=== PATIENT | female | born 1940 | race Caucasian/White ===

== ENCOUNTER 2020-06-28 10:44 | Emergency (ER) | payer MEDICARE, OTHER, SELFPAY ==
[2020-06-28 10:46] VITALS: BP 245/88; PULSE 83; RESP 18; TEMP 36.8; O2SAT 98; BMI 28.7
--- NOTE | 2020-06-28 11:03 | ED.VIS.GEN ---
History of Present Illness Chief Complaint: Hypertension Informant: Patient Narrative: 79-year-old female is brought to the emergency room for hypertension. 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 She was hospitalized 3 weeks ago at [facility] for hypertension. She was recently hospitalized at [place] for hypertension. She has a couple of medication list with her but she does not know which ones she is currently taking. Reportedly she has new hypertensive medications that her daughter picked up for her that she has not yet started taking. She states she took what she had. She states that she notes her blood pressure spikes with her anxiety and with her pain. Tells me that her blood pressure at home after discharge yesterday was around 150/80. Blood pressure readings at preoperative testing was around 250/90. She denies any symptoms related to her hypertension. 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 Past Medical History - Allergies and Home Meds Allergies/Adverse Reactions: Allergies lisinopril Allergy (Verified 06/28/20 10:49) Shortness of breath Primary Care Physician: ISAI GAMBLE [Other] - As soon as possible Past Medical History: - - Hypertension hypercholesterolemia Surgical History: noncontributory Lives: - - Lives in [place] Smoking Status: Never smoker Drugs: None Review of Systems General: Denies: Chills, Fever, Sweats Eyes: Denies: Visual changes - bilaterally, Diplopia ENT: Reports: - - Chronic facial pain. Denies: Rhinorrhea, Sore throat Cardiovascular: Denies: Chest pain, Palpitations Respiratory: Denies: Dyspnea, Cough, Dyspnea on exertion Gastrointestinal: Denies: Abdominal pain, Nausea, Vomiting, Diarrhea, Melena, Hematochezia Genitourinary: Denies: Dysuria, Hematuria, Frequency Musculoskeletal: Denies: Back pain, Extremity Pain Skin: Denies: Rash, Wounds Neurological: Denies: Headache, Weakness, Numbness Physical Exam Vital Signs/Narrative: Vital Signs Temp Pulse Resp BP Pulse Ox 06/28/20 10:46 98.2 F 83 18 245/88 H 98 Inital Vital Signs reviewed: Yes General: Well nourished, Well developed, No Acute Distress Head: Normocephalic, Atraumatic Eyes: Perrl, EOMI ENT: Moist mucous membranes, No rhinorrhea Neck: Supple, Nontender Cardiovascular: Regular rate, Regular rhythm, No murmurs Respiratory: No distress, CTA bilaterally, Chest nontender Abdomen: Soft, Nontender, Nondistended, Normal bowel sounds Back: Nontender, Normal Inspection Extremities: Nontender, No edema Skin: Normal color, No rash Neurological: Alert, Oriented x3, Cranial nerves II-XII grossly intact, Normal Strength, Normal Sensation Psychological: Normal affect, Normal Mood Diagnostic/Tx/Re-eval Clinical Impression(s) from Imaging Studies Chest X-Ray 06/28/20 11:35 IMPRESSION: Hyperinflation. No acute abnormality is seen. Electronically Signed: Ventura Tika, at 12:14 EST , Service support , Laboratory Last Values WBC 8.2 K/mm3 (4.4-11.0) 06/28/20 10:28 RBC 3.49 M/mm3 (4.2-5.4) L 06/28/20 10:28 Hgb 10.8 g/dL (12.0-15.0) L 06/28/20 10:28 Hct 30.2 % (37-47) L 06/28/20 10:28 MCV 86.5 fL (81-99) 06/28/20 10:28 MCH 30.9 pg (27.0-32.0) 06/28/20 10:28 MCHC 35.8 g/dL (32-36) 06/28/20 10:28 RDW Std Deviation 39.4 fl (35.1-43.9) 06/28/20 10:28 RDW Coeff of Dwight 12.5 % (11.6-14.6) 06/28/20 10:28 Plt Count 222 K/mm3 (150-450) 06/28/20 10:28 MPV 9.0 fl (6.2-12.0) 06/28/20 10:28 Immature Gran % (Auto) 0.400 % (0.0-0.9) 06/28/20 10:28 Neut % (Auto) 83.3 % (47-70) H 06/28/20 10:28 Lymph % (Auto) 8.3 % (19-41) L 06/28/20 10:28 Walker % (Auto) 6.3 % (0-10) 06/28/20 10:28 Eos % (Auto) 1.5 % (0-5) 06/28/20 10:28 Baso % (Auto) 0.2 % (0-1) 06/28/20 10:28 Absolute Neuts (auto) 6.8 X10^3/uL (2.0-7.7) 06/28/20 10:28 Absolute Lymphs (auto) 0.68 X10^3/uL (0.83-4.51) L 06/28/20 10:28 Nucleated RBC % 0 % (0-5) 06/28/20 10:28 Sodium 130 mmol/L (136-145) L 06/28/20 10:28 Potassium 3.4 mmol/L (3.5-5.1) L 06/28/20 10:28 Chloride 95 mmol/L (98-107) L 06/28/20 10:28 Carbon Dioxide 28.0 mmol/L (21.0-32.0) 06/28/20 10:28 Anion Gap 7 (5-15) 06/28/20 10:28 BUN 14 mg/dL (7-18) 06/28/20 10:28 Creatinine 0.76 mg/dL (0.55-1.02) 06/28/20 10:28 Estim Creat Clear Calc 39.70 ml/min 06/28/20 10:28 Est GFR (MDRD) Af Amer 94 mL/min (>60) 06/28/20 10:28 Est GFR (MDRD) Non-Af 78 mL/min (>60) 06/28/20 10:28 BUN/Creatinine Ratio 18.5 RATIO (10-20) 06/28/20 10:28 Glucose 110 mg/dL (74-106) H 06/28/20 10:28 Calcium 9.1 mg/dL (8.5-10.1) 06/28/20 10:28 Troponin I 0.015 ng/mL (<0.045) 06/28/20 10:28 Clinical Impression(s) from Imaging Studies Chest X-Ray 06/28/20 11:35 IMPRESSION: Hyperinflation. No acute abnormality is seen. Electronically Signed: Ventura Villela, at 12:14 EST , Service support , - EKG Initial EKG Interpretation: Sinus Rhythm - EKG demonstrates a sinus rhythm with a first-degree AV block. No concerning features of ACS. - Medical Decision Making Chest x-ray shows a normal mediastinal silhouette. EKG appears without any ST depression or elevation. Basic blood work was negative. I spoke with the patient after she received 2 doses of hydralazine her blood pressure is now 199/86. We talked about whether or not she would want to be hospitalized here versus going back home taking the regimen that she was prescribed after hospital discharge yesterday and seeing how her blood pressure does in 24 hours and that if it continues to be significantly elevated she would go to her local hospital for admission. She states she would feel comfortable more comfortable if her blood pressure was lower but that ideally she would prefer to be back in [place]. I gave her oral clonidine. At 1338 hrs. the patient's blood pressure is 181/52. I informed the patient I cannot predict the future. I do not know if her blood pressure will rise again. Do not know if she goes home and she takes her medications if her blood pressure will go back down to where it was when she left the hospital yesterday. Patient understands this. She is comfortable going home taking her blood pressure regimen following up with her doctor if it stabilizes but also going back to [facility] if she enters into hypertensive urgency range. ED Disposition - Plan for ED Patient: Disposition: Home or Assisted Living Diagnosis: Hypertensive urgency Instructions: ED High Blood Pressure Established Out of Control Referrals: ISAI GAMBLE [Other] - As soon as possible Additional Instructions: You return home take the blood pressure medications that you were prescribed. Make sure that your medications are clearly outlined as to what you should take. If in 24 hours with that regimen you are still significantly hypertensive I recommend you talking either to your doctor or go back to [facility].
--- NOTE | 2020-06-28 11:07 | EKG12_ITS ---
Test Reason : Blood Pressure : / mmHG Vent. Rate : 074 BPM Atrial Rate : 074 BPM P-R Int : 224 ms QRS Dur : 088 ms QT Int : 384 ms P-R-T Axes : 070 -19 031 degrees QTc Int : 426 ms Sinus rhythm with marked sinus arrhythmia with 1st degree A-V block Minimal voltage criteria for LVH, may be normal variant Borderline ECG Confirmed by ELA GUILLERMO, SHERIE ([id number]), marketing editor JESSICA DUMAS ([id number]) on 07/02/2020 8:36:39 AM Referred By: Confirmed By:SHERIE MAHMOOD MD
[2020-06-28 11:16] LABS: Absolute Lymphocyte Count 0.68 X10^3/uL (0.83-4.51); Absolute Neutrophil Count 6.8 X10^3/uL (2.0-7.7); Basophil# 0.02 X10^3/uL; Basophil% 0.2 % (0-1); Eosinophil# 0.12 X10^3/uL; Eosinophils% 1.5 % (0-5); Hematocrit 30.2 % (37-47); Hemoglobin 10.8 g/dL (12.0-15.0); Lymphocyte # 0.68 X10^3/ul (4.0); Lymphocyte % 8.3 % (19-41); Mean Corp Hgb Conc 35.8 g/dL (32-36); Mean Corpuscular Hgb 30.9 pg (27.0-32.0); Mean Corpuscular Volume 86.5 fL (81-99); Monocyte# 0.52 X10^3/uL; Monocyte% 6.3 % (0-10); NRBC Flagged by Analyzer 0 % (0-5); Neutrophil # 6.84 X10^3/uL (2.7-7.7); Neutrophil % 83.3 % (47-70); Platelet Count 222 K/mm3 (150-450); RBC Distribution Width CV 12.5 % (11.6-14.6); RBC Distribution Width SD 39.4 fl (35.1-43.9); Red Blood Count 3.49 M/mm3 (4.2-5.4); White Blood Count 8.2 K/mm3 (4.4-11.0)
[2020-06-28 11:29] LABS: Anion Gap 7 (5-15); BUN 14 mg/dL (7-18); BUN/Creat Ratio 18.5 RATIO (10-20); Calcium,Total 9.1 mg/dL (8.5-10.1); Chloride 95 mmol/L (98-107); Creatinine, Serum 0.76 mg/dL (0.55-1.02); EST Glomerular Filtration Rate 78 mL/min (>60); Est Glom Filt Rate - Afr Amer 94 mL/min (>60); Glucose 110 mg/dL (74-106); Potassium 3.4 mmol/L (3.5-5.1); Sodium Level 130 mmol/L (136-145)
[2020-06-28] MEDS: hydrALAZINE 20 MG/ML Vial IV ×2 (11:31→12:35)
--- NOTE | 2020-06-28 11:35 | RAD_ITS ---
STUDY: X-RAY CHEST REASON FOR EXAM: Female, 79 years old. Hypertension TECHNIQUE: Single AP portable view of the chest. COMPARISON: None. FINDINGS: EKG electrodes are seen. Hyperinflation. Scattered calcified granulomas. No infiltrate is seen. There is no demonstrated pleural abnormality. Normal size heart. Normal mediastinum and angela. There is prominence of the pulmonary hilar arteries without peripheral pulmonary vascular congestion, suggesting pulmonary hypertension. There is atherosclerotic calcification of the aortic arch with tortuosity. There are diffuse degenerative changes of the visualized thoracic spine. Mild dextroscoliosis There is degenerative osteoarthritis of the bilateral shoulders. There is no demonstrated abnormality of the visualized soft tissue structures of the upper abdomen. RAD/Chest 1 View (Portable) IMPRESSION: Hyperinflation. No acute abnormality is seen. Electronically Signed: Ventura Villela, at 12:14 EST , Service support ,
[2020-06-28 12:24] VITALS: BP 209/66; PULSE 67; RESP 18; O2SAT 96
[2020-06-28 12:37] VITALS: BP 198/73; PULSE 77; RESP 18; O2SAT 98
[2020-06-28 13:35] VITALS: BP 181/52; PULSE 82
[2020-06-28] MEDS: cloNIDine HCl 0.2 MG Tablet PO (13:35)
[2020-06-28] MEDS: oxyCODONE 5 MG Tablet PO (14:16)
[2020-06-28 14:21] VITALS: BP 172/56; PULSE 77; RESP 20; O2SAT 96
== END 2020-06-28 14:21 | disposition home or self-care (01) ==
PROVIDERS: Emergency Provider Emergency Medicine
DX: I16.0 Hypertensive urgency (principal); I44.0 Atrioventricular block, first degree; G89.29 Other chronic pain; F41.9 Anxiety disorder, unspecified
CPT/HCPCS: 71045; 80048; 84484; 85025; 93005; 96374; 96376; 99285; A4216